=== PATIENT | female | born 1970 ===

== ENCOUNTER → 2018-08-30 | Emergency (ER) | payer OTHER ==
[~2018-08-30] VITALS: Ht 162.6 cm; Wt 99.8 kg
[~2018-08-30] MED LIST: ATACAND4 MG; LEXAPRO5 MG; ORPH100T PO; SYNTHROID75 MCG; TRAMADOL HCL-AP1 TAB PO; WELLBUTRIN75 MG; XANAX1 MG
== END | disposition left against medical advice (07) ==
LOC: ER 19:08
DX: Z53.20 Procedure and treatment not carried out because of patient's decision for unspecified reasons (principal)

== ENCOUNTER 2019-08-17 11:39 | Emergency (ER) | payer OTHER ==
[~2019-08-17] VITALS: Ht 162.6 cm; Wt 95.3 kg
[2019-08-17] MEDS ORDERED: LOSARTAN POTASS25 MG PO (12:01)
[2019-08-17] MEDS ORDERED: WELLBUTRIN XL150 M1 PO (12:01)
[2019-08-17] MEDS ORDERED: PROZAC10 M1 PO (12:02)
== END 2019-08-17 17:53 | disposition home or self-care (01) ==
LOC: ER 11:39
DX: J11.1 Influenza due to unidentified influenza virus with other respiratory manifestations (principal); B34.9 Viral infection, unspecified

== ENCOUNTER 2020-01-25 23:07 | Emergency (ER) | payer OTHER ==
[~2020-01-25] VITALS: Ht 162.6 cm; Wt 98.4 kg
[~2020-01-25 23:07] MED LIST changes: +LOSARTAN POTASS25 MG PO; +PROZAC10 M1 PO; +WELLBUTRIN XL150 M1 PO
[2020-01-26] MEDS ORDERED: CELEBREX200MG PO (04:23)
== END 2020-01-26 04:47 | disposition home or self-care (01) ==
LOC: ER 23:07
DX: S93.402A Sprain of unspecified ligament of left ankle, initial encounter (principal); X50.3XXA Overexertion from repetitive movements, initial encounter; Y93.89 Activity, other specified; Y92.89 Other specified places as the place of occurrence of the external cause; Y99.8 Other external cause status

== ENCOUNTER → 2020-10-30 | Emergency (ER) | payer OTHER ==
[~2020-10-30] MED LIST changes: +CELEBREX200MG PO
== END | disposition left against medical advice (07) ==
LOC: ER 10:13
DX: Z53.20 Procedure and treatment not carried out because of patient's decision for unspecified reasons (principal)

== ENCOUNTER 2021-06-25 13:40 | Outpatient (CLI) | payer OTHER | END 2021-06-25 13:54 | disposition home or self-care (01) | LOC: RAD 13:40 | PROVIDERS: ATTEND Pain Medicine Interventional Pain Medicine | DX: M25.561 Pain in right knee (principal) ==

== ENCOUNTER 2023-02-23 13:11 | Emergency (ER) | payer OTHER ==
[~2023-02-23] VITALS: Ht 167.6 cm; Wt 77.1 kg
[2023-02-23] MEDS ORDERED: LASIX40 MG PO (14:01)
[2023-02-23] MEDS ORDERED: ATORVASTATIN CA40 MG PO (14:01)
[2023-02-23] MEDS ORDERED: DICLOFENAC SODI75 MG PO (16:09)
== END 2023-02-23 16:14 | disposition home or self-care (01) ==
LOC: ER 13:11
DX: S89.82XA Other specified injuries of left lower leg, initial encounter (principal); W18.39XA Other fall on same level, initial encounter; Y93.89 Activity, other specified; Y92.018 Other place in single-family (private) house as the place of occurrence of the external cause; S99.812A Other specified injuries of left ankle, initial encounter; S99.811A Other specified injuries of right ankle, initial encounter; S99.822A Other specified injuries of left foot, initial encounter; S99.821A Other specified injuries of right foot, initial encounter